=== PATIENT | male | born 1965 | race Caucasian/White ===

== ENCOUNTER 2023-03-23 13:09 | Observation (INO) | payer OTHER ==
[~2023-03-23] VITALS: Ht 172.7 cm; Wt 89.6 kg
[2023-03-23 13:31] LABS: BASOPHILS 0.8 % (0-2); EOSINOPHILS 2.7 % (0-6); HEMATOCRIT 50.3 % (35.0-50.0); HEMOGLOBIN 17.1 g/dL (12.0-18.0); LYMPHOCYTES 26.3 % (24-44); MCH 28.3 (27-36); MCV 83.1 fl (81-99); MONOCYTES 5.8 % (0-12); NEUTROPHILS 64.4 % (39-80); PLATELET COUNT 291 K/uL (140-440); RBC 6.06 M/ul (4.3-5.7); RDW 14.1 (10.5-15.0)
[2023-03-23] MEDS ORDERED: SUDOGEST60 MG PO (13:40)
[2023-03-23] MEDS ORDERED: ASPIRIN REGIMEN81 MG PO (13:40)
[2023-03-23] MEDS ORDERED: ATORVASTATIN CA80 MG PO (13:40)
[2023-03-23] MEDS ORDERED: TADALAFIL5 M1 PO (13:40)
[2023-03-23] MEDS ORDERED: MINOXIDIL2.5 MG PO (13:40)
[2023-03-23 13:46] LABS: ALBUMIN 4.1 g/dL (3.4-5.0); ALBUMIN/GLOBULIN RATIO 1.05 (1.1-2.4); ANION GAP 15.2 (7-21); BILIRUBIN, TOTAL 1.1 ng/dL (0.2-1.0); BUN/CREATININE RATIO 16.66 (6.0-28.6); CALCIUM 9.9 mg/dL (8.5-10.1); CREATININE, SERUM 1.2 mg/dL (0.70-1.30); POTASSIUM 4.2 mmol/L (3.5-5.1)
[2023-03-23 18:20] LABS: BILIRUBIN, URINE NEGATIVE (negative); BLOOD/HGB, URINE NEGATIVE (Negative); KETONE, URINE NEGATIVE (Negative); LEUK ESTERASE, URINE NEGATIVE (negative); NITRITE, URINE NEGATIVE (negative); PH, URINE 5.5 (5-7)
[2023-03-23 20:28] VITALS: BP 129/80
--- NOTE | 2023-03-23 21:44 | NUR ---
PT TO FLOOR VIA FROM ED APPROX 2029. PT ALERT AND ORIENTED. ABLE TO TRANSFER SELF FROM WC TO BED. VS AND WEIGHT OBTAINED. IVF INFUSING PER ORDER. NGT TO LIWS WITH THICK BROWN DRAINAGE. NGT FLUSHED WITH WATER. IMMEDIATE RETURN NOTED. PT DENIES NAUSEA. DENIES ABD PAIN AT THIS TIME. REPORTS THROAT DISCOMFORT FROM NGT. NOTIFIED. NEW TELEPHONE ORDERS RECEIVED VERIFIED WITH READBACK METHOD. OK'D ICE CHIPS TOLERATED. PRN THROAT LOZENGE AND FEW ICE CHIPS PROVIDED. BOWEL TONES HYPOACTIVE. ABD SOFT. CHRONIC ILEOSTOMY WITH SMALL AMOUNT DRAINAGE THAT PATIENT DESCRIBES "LOOSER" THAN NORMAL. PT ORIENTED TO ROOM AND NURSE CALL LIGHT. DENIES QUESTIONS OR CONCERNS. CALL LIGHT IN REACH.
--- NOTE | 2023-03-23 23:35 | NUR ---
PT RESTING IN BED WITH EYES CLOSED. RESPIRATIONS EVEN. NGT PATENT WITH BROWN DRAINAGE. IVF INFUSING PER ORDER. CALL LIGHT IN REACH.
[2023-03-24 02:23] VITALS: BP 125/61
--- NOTE | 2023-03-24 02:49 | NUR ---
PT UP TO BR TO EMPTY OSTOMY AND VOID. BACK TO BED, SOUMYA WELL. VS AND I&O OBTAINED. PT REPORTS HEADACHE PAIN, REQUESTS NON NARCOTIC. MD NOTIFIED. NEW TELEPHONE ORDERS RECEIVED VERIFIED WITH READBACK METHOD. PT REPORTS ABD PAIN 05/02. DENIES NAUSEA. PRN FOR PAIN ADMIN PER EMAR. FEW ICE CHIPS AND THROAT LOZENGE PROVIDED. ASSESSMENT COMPLETE. ORAL CARE SUPPLIES PROVIDED. NO FURTHER NEEDS.
[2023-03-24 05:28] VITALS: BP 123/79
[2023-03-24 05:31] LABS: BASOPHILS 0.6 % (0-2); EOSINOPHILS 3.9 % (0-6); HEMATOCRIT 43.2 % (35.0-50.0); HEMOGLOBIN 14.6 g/dL (12.0-18.0); MCH 28.1 (27-36); MCHC 33.9 g/dl (30-36); MCV 82.9 fl (81-99); MONOCYTES 12.2 % (0-12); NEUTROPHILS 57.3 % (39-80); PLATELET COUNT 244 K/uL (140-440)
--- NOTE | 2023-03-24 05:50 | NUR ---
LAB IN ROOM FOR MORNING DRAW. PT UP TO BR INDEPENDENTLY TO VOID AND EMPTY 400 ML LOOSE STOOL FROM OSTOMY. PT DENIES PAIN OR NAUSEA. NGT WITH 700 ML TOTAL GREENISH BROWN DRAINAGE WITH APPROX 100 ML IN ICE CHIPS THROUGH THE NIGHT. PT DENIES FURTHER NEEDS. CALL LIGHT IN REACH.
[2023-03-24 05:56] LABS: ALBUMIN/GLOBULIN RATIO 0.94 (1.1-2.4); ANION GAP 11.8 (7-21); BILIRUBIN, TOTAL 1.4 ng/dL (0.2-1.0); BUN/CREATININE RATIO 16.52 (6.0-28.6); CALCIUM 8.7 mg/dL (8.5-10.1); CREATININE, SERUM 1.21 mg/dL (0.70-1.30); PHOSPHORUS, INORGANIC 4.5 mg/dL (2.5-4.9); POTASSIUM 3.8 mmol/L (3.5-5.1); PROTEIN, TOTAL 6.2 g/dL (6.4-8.2)
--- NOTE | 2023-03-24 07:50 | NUR ---
PT RESTING IN BED, NO REQUESTS OR COMPLAINTS AT THIS TIME. PT DENIES PAIN. ASSESSMENT COMPLETE. NG CLAMPED.
[2023-03-24 09:03] VITALS: BP 125/73
--- NOTE | 2023-03-24 09:26 | NUR ---
PATIENT IS RESTING IN BED, NGT IS STILL PLUGGED AND PATIENT DENIES NAUSEA.
--- NOTE | 2023-03-24 10:06 | NUR ---
ROUNDS. PT EXPRESSED STRONG RESOURCES AND POSITIVE OUTLOOK. PROVIDED HOSPITALITY; ENCOURAGE SELF CARE; PROVIDED SILENT PRAYER.
--- NOTE | 2023-03-24 10:22 | NUR ---
DR. MANE IN TO SEE PATIENT. NGT D/C'D, PATIENT TO HAVE CLEAR LIQUIDS, CONTINUE IVF AT THIS TIME.
--- NOTE | 2023-03-24 10:45 | NUR ---
PER DISCUSSION WITH DR. MANE, PATIENT DOING WELL. NG TUBE DC'D AND CLEAR LIQUIDS ORDERED. POSSIBLE DC THIS EVENING OR TOMORROW AM.
--- NOTE | 2023-03-24 11:02 | NUR ---
UR NOTE [facility] GENERAL OBSERVATION (ISC) 03/23/23 MET OBSERVATION CARE ADMISSION CRITERIA
--- NOTE | 2023-03-24 11:36 | NUR ---
PT TOLERATED CLEAR LIQUID DIET WELL.
[2023-03-24 13:00] VITALS: BP 140/77
--- NOTE | 2023-03-24 13:10 | NUR ---
DR MANE IN TO VISIT WITH PT AND REGARDING DISCHARGE.
--- NOTE | 2023-03-24 13:20 | NUR ---
IV DC'D FOR DISCHARGE. CATHETER INTACT AND PRESSURE HELD.
[2023-03-24] MEDS ORDERED: OXYCODONE HCL5 MG PO (13:32)
[2023-03-24 13:45] VITALS: BP 140/77
--- NOTE | 2023-03-24 13:50 | NUR ---
MED REC COMPLETE
== END 2023-03-24 13:50 | disposition home or self-care (01) ==
LOC: ED 13:09 → MS 13:11
PROVIDERS: Family Medicine; ADMIT Family Medicine; ATTEND Family Medicine
DX: K56.609 Unspecified intestinal obstruction, unspecified as to partial versus complete obstruction (principal); E80.6 Other disorders of bilirubin metabolism; Z88.1 Allergy status to other antibiotic agents
CPT/HCPCS: 36415; 71045; 74018; 80053; 81003; 83735; 84100; 85025; 96361; 96374; 96375; 96376; 99285-25; G0378; J1170; J1885; J2405; J7121